=== PATIENT | female | born 1990 ===

== ENCOUNTER 2016-08-12 15:52 | Emergency (ER) | payer SELFPAY ==
[~2016-08-12] VITALS: Ht 175.3 cm; Wt 100.0 kg
[2016-08-12 16:00] VITALS: Ht 175.3 cm; Wt 100.0 kg
== END 2016-08-12 19:16 | disposition left against medical advice (07) ==
LOC: FTE 15:52
DX: Z53.21 Procedure and treatment not carried out due to patient leaving prior to being seen by health care provider (principal)